=== PATIENT | male | born 1990 | race Caucasian/White ===

== ENCOUNTER 2019-04-19 06:57 | Day surgery (SDC) | payer BC ==
[~2019-04-19] VITALS: Ht 177.8 cm; Wt 79.4 kg
[~2019-04-19 06:57] MED LIST: ACET-683 PO
[2019-04-19] MEDS ORDERED: LR 1,000 ML IV ONE (07:00)
[2019-04-19] MEDS ORDERED: dexameTHASONE 4 MG/ML 1ML VIAL (J1100) IV ONE (07:00)
[2019-04-19] MEDS ORDERED: AMPICILLIN SOD/SULBACTAM SOD 3 GM in D5W MINI-BAG PLUS 100 ML IV ONE (07:00)
[2019-04-19] MEDS ORDERED: LIDOCAINE 2% W/ EPINEPHRINE 1.7 ML DENTAL INJ As Ordered ONE (09:35)
[2019-04-19] MEDS ORDERED: CHLORHEXIDINE GLUCONATE 0.12 % 15ML UDC (PERIDEX ORAL RINSE) As Ordered ONE (09:35)
[2019-04-19] MEDS ORDERED: MIDAZOLAM INJ 2 MG/2 ML VIAL (J2250) As Ordered ONE (10:52)
[2019-04-19] MEDS ORDERED: fentaNYL 250 MCG/5 ML INJECTION (J3010) As Ordered ONE (10:52)
[2019-04-19] MEDS ORDERED: LIDOCAINE 2% JELLY 6 ML SYRINGE As Ordered ONE (10:52)
[2019-04-19] MEDS ORDERED: ONDANSETRON 4MG/2ML VIAL (J2405) As Ordered ONE (10:52)
[2019-04-19] MEDS ORDERED: ROCURONIUM BROMIDE 50 MG/5 ML VIAL As Ordered ONE (10:52)
[2019-04-19] MEDS ORDERED: LIDOCAINE 2% INJ 100 MG/5 ML SDV (FOR ANES.) As Ordered ONE (10:52)
[2019-04-19] MEDS ORDERED: PROPOFOL 200 MG/20 ML VIAL As Ordered ONE (10:52)
[2019-04-19] MEDS ORDERED: SUGAMMADEX SODIUM 500 MG/5 ML VIAL (BRIDION) As Ordered ONE (10:52)
[2019-04-19] MEDS ORDERED: KETOROLAC 60 MG/2 ML VIAL (J1885) As Ordered ONE (10:52)
[2019-04-19] MEDS ORDERED: LR 1,000 ML IV SCH (11:15)
[2019-04-19] MEDS ORDERED: fentaNYL 100 MCG/2 ML INJECTION (J3010) IV PRN (11:15)
[2019-04-19] MEDS ORDERED: HYDROcodone/APAP LIQUID 7.5-325MG 15ML UDC (LORTAB ELIXIR) As Ordered ONE (12:09)
[2019-04-19] MEDS ORDERED: ACETAMINOPHEN 500 MG TAB PO PRN (12:15)
[2019-04-19 12:30] VITALS: BP 138/84
[2019-04-19] MEDS ORDERED: HYDROcodone/APAP LIQUID 7.5-325MG 15ML UDC (LORTAB ELIXIR) PO ONE (13:00)
--- NOTE | 2019-04-19 14:01 | RO ---
DATE OF PROCEDURE: 04/19/2019 PREOPERATIVE DIAGNOSIS: 1. Grossly decayed and symptomatic teeth 16, 17, 18 and 19. POSTOPERATIVE DIAGNOSIS: Status post the above. PROCEDURE PERFORMED: Extraction of teeth number 16, 17, 18, and 19. SURGEON: Clifton Nolen DMD, MD MAIL DISTRIBUTION SCHEME EXAMINER: None. ANESTHESIA: General endotracheal anesthesia via nasal SAHIL. SPECIMENS: None. INDICATIONS FOR SURGERY: Mitchell is a pleasant 28-year-old male who was referred to my office for evaluation and for extraction of decayed and very symptomatic teeth 16, 17, 18 and 19. He had seen multiple dentist's in the last month who have attempted to anesthetize the patient and remove the teeth with no luck. He reports that he had a significant amount of pain upon any luxation of those teeth at those dental offices and he desires to be completely put to sleep. I gave him the options of IV sedation in the office versus general anesthesia in an operating room setting. He chose the latter. All the risks, benefits and alternatives were explained to the patient. Informed consent was explained to the patient and reviewed with the patient, signed, and a history and physical was performed and is in the patient's chart. DESCRIPTION OF PROCEDURE: On April 19, 2019 the patient presented to preop holding area. Any last minute questions were addressed. History and physical and the consent were updated. At that point, the patient was taken back to the operating room. He was laid supine on the operating room table. Ulnar nerve protectors were placed. Noninvasive cardiac monitors were applied. At that point, the patient underwent general anesthesia and was intubated with a nasal SAHIL which was secured to the patient's forehead. He was prepped and draped in the usual sterile fashion. A time out procedure was performed to identify the patient, the procedure and any other precautions. Preoperative antibiotics with steroids were administered in the IV. At this point a moist throat pack was inserted in the patient's oropharynx followed by the administration of four Carpule's of 2% lidocaine with 1:100,000 epinephrine as local infiltration and blocks. Full-thickness flap was then released in site number 16 extending into the tuberosity area. A small amount of buccal bone was removed and the tooth was then luxated and delivered. The socket was curetted and irrigated. No sinus exposure was noted. Flaps was closed with #3-0 chromic. Attention was then given to the posterior left mandible where a hockey stick extension posteriorly in the mandible was performed extending into the distal of number 17 and worked into the sulcus anteriorly of teeth 17, 18, 19 and 20. Flap was fully reflected. A small amount of buccal bone was removed from sites number 17, 18 and 19 and the teeth were then luxated and delivered with forceps with ease. All the sockets were copiously irrigated and suctioned. A small alveoloplasty was performed to remove any sharp bony areas and the flaps were then closed with #3-0 chromic sutures. At this point, once the teeth were removed the oral cavity was irrigated and suctioned. Throat pack was removed. The patient was awakened from general anesthesia and taken back to the postanesthesia care unit (PACU). COMPLICATIONS: None to mention at time of surgery. ESTIMATED BLOOD LOSS: 10 mL. DRAINS: There were no drains placed.
== END 2019-04-19 12:31 | disposition home or self-care (01) ==
LOC: M SDC 06:57
PROVIDERS: ATTEND Dentist
DX: K02.9 Dental caries, unspecified (principal); F17.210 Nicotine dependence, cigarettes, uncomplicated
CPT/HCPCS: 41899; 88300; J1100; J1885; J2250; J2405; J3010